=== PATIENT | male | born 1935 | race African-American/Black ===

== ENCOUNTER 2019-12-22 21:55 | Inpatient (IN) ==
[2019-12-22] MEDS ORDERED: ONDANSETRON 4 MG/2 ML VIAL IV STA (22:17)
[2019-12-22] MEDS ORDERED: hydrALAZINE 20 MG/1 ML VIAL IV STA (22:23)
[2019-12-22 22:57] LABS: Hematocrit 33.8 VOL% (42.0-52.0); Immature Granulocytes % 0.3 %; Immature Granulocytes Absolute 0.01 #; Lymphocytes # 0.5 10*3/uL (1.4-4.0); Lymphocytes % 14.5 % (21.2-54.2); Mean Corpuscular HGB Conc 32.5 GM/DL (32-36); Mean Corpuscular Volume 88.7 FL (87-102); Monocytes % 6.8 % (1.7-12.7); Neutrophils % 78.4 % (38.7-73.9); Platelet Count 134 T/CUMM (130-400); Red Blood Count 3.81 MC/CUMM (3.8-5.5); Red Cell Distribution Width 15.9 % (9.3-17.3); White Blood Count 3.4 T/CUMM (4-12)
[2019-12-22 23:08] LABS: PT Patient Result 10.8 SECS (9.8-11.9)
[2019-12-22 23:31] LABS: Alanine Aminotransferase 30 U/L (16-61); Albumin 2.8 G/DL (3.4-5.0); Alkaline Phosphatase 39 U/L (45-117); Aspartate Amino Transferase 57 U/L (0-37); Bilirubin,Total < 0.39 MG/DL (0.2-1.0); Blood Urea Nitrogen 34 MG/DL (7-18); CKMB % 0.6 %; Calcium 8.1 MG/DL (8.5-10.1); Estimated Glom Filtration Rate 23 ML/MIN; Free T4 (Free Thyroxine) 0.92 NG/DL (0.76-1.46); Osmolality,Calculated 277.8 MOS/KG (273-304)
[2019-12-22 23:33] LABS: Glucose 45 MG/DL (74-106); Troponin I 0.052 NG/ML (0.00-0.045)
[2019-12-22] MEDS ORDERED: DEXTROSE 50% 25 GM/50 ML SYRINGE IV ONE (23:35)
[2019-12-22] MEDS ORDERED: AZITHROMYCIN INJ 500 MG in SODIUM CHLORIDE 0.9% 250 ML IV STA (23:55)
[2019-12-22] MEDS ORDERED: ALBUTEROL/IPRATROPIUM 3 ML NEB RESP TX STA (23:55)
[2019-12-22] MEDS ORDERED: cefTRIAXone 1,000 MG in SODIUM CHLORIDE 0.9% 100 ML IV STA (23:55)
[2019-12-22] MEDS ORDERED: methylPREDNISolone SOD SUC 125 MG/2 ML VIAL IV STA (23:55)
[2019-12-23] MEDS ORDERED: hydrALAZINE 20 MG/1 ML VIAL IV STA (00:01)
[2019-12-23 00:27] LABS: Ferritin 760.7 ng/ml (26-388)
[2019-12-23] MEDS ORDERED: ONDANSETRON 4 MG/2 ML VIAL IV PRN (00:29)
[2019-12-23] MEDS ORDERED: DEXTROSE 50% 25 GM/50 ML VIAL IV PRN ×2 (00:29)
[2019-12-23] MEDS ORDERED: GLUCAGON 1 MG VIAL IM PRN ×2 (00:29)
[2019-12-23] MEDS ORDERED: ACETAMINOPHEN 325 MG TABLET PO PRN (00:29)
[2019-12-23] MEDS ORDERED: INFLUENZA VIRUS VACCINE 0.5 ML SYRINGE IM ONE (01:58)
[2019-12-23] MEDS ORDERED: PNEUMOCOCCAL VACCINE (13 VALENT) 0.5 ML SYRINGE IM ONE (01:58)
[2019-12-23] MEDS: SODIUM CHLORIDE 0.9% 1,000 ML IV SCH ×2 (02:13→14:46)
[2019-12-23] MEDS: hydrALAZINE 20 MG/1 ML VIAL IV PRN ×3 (02:29→16:10)
[2019-12-23 05:05] LABS: Hematocrit 39.7 VOL% (42.0-52.0); Hemoglobin 12.6 GM/DL (14.0-18.0); Immature Granulocytes % 0.2 %; Immature Granulocytes Absolute 0.01 #; Lymphocytes # 0.5 10*3/uL (1.4-4.0); Lymphocytes % 12.8 % (21.2-54.2); Mean Corpuscular HGB Conc 31.7 GM/DL (32-36); Mean Corpuscular Volume 88.8 FL (87-102); Monocytes % 2.4 % (1.7-12.7); Neutrophils % 84.6 % (38.7-73.9); Platelet Count 159 T/CUMM (130-400); Red Blood Count 4.47 MC/CUMM (3.8-5.5); Red Cell Distribution Width 15.9 % (9.3-17.3); White Blood Count 4.2 T/CUMM (4-12)
[2019-12-23 05:27] LABS: Platelet Estimate Adequate
[2019-12-23 05:33] LABS: Calcium 8.5 MG/DL (8.5-10.1); Osmolality,Calculated 278.2 MOS/KG (273-304)
[2019-12-23] MEDS: hydrALAZINE 25 MG TABLET PO SCH ×3 (08:15→22:11)
[2019-12-23] MEDS: INSULIN REGULAR 100 UNIT/ML SUBCUT SCH ×4 (08:40→22:12)
[2019-12-23] MEDS: AZITHROMYCIN 250 MG TABLET PO SCH (08:43)
[2019-12-23] MEDS ORDERED: amLODIPine 10 MG TABLET PO SCH (09:00)
[2019-12-23] MEDS ORDERED: PANTOPRAZOLE 40 MG TABLET PO SCH (09:00)
[2019-12-23 11:00] LABS: Amorphous Crystals,Urine Occasional /HPF (Few); Apearance,Urine CLEAR (Clear); Bacteria,Urine Occasional /HPF (Few); Bilirubin,Urine Negative (Negative); Blood, Urine Large mg/dL (Negative); Glucose,Urine (UA) 50 mg/dL (Negative); Ketones,Urine 5 mg/dL (Negative); Mucus,Urine Occasional /LPF (Occasional); Nitrite,Urine Negative (Negative); Protein,Urine >=500 MG/DL; RBC,Urine 5 /HPF (0-4); Urine Color Yellow (Yellow); Urine Specific Gravity 1.017 (1.001-1.035); Urine Urobilinogen < 2.0 EU/DL (0.2-1.0); WBC,Urine <1 /HPF (0-6)
[2019-12-23] MEDS: cefTRIAXone 2,000 MG in SYRINGE 1 EACH IV SCH (20:55)
[2019-12-23] MEDS ORDERED: AZITHROMYCIN INJ 500 MG in SODIUM CHLORIDE 0.9% 250 ML IV SCH (21:00)
[2019-12-24] MEDS ORDERED: DEXTROSE 10% 250 ML BAG IV PRN ×2 (07:30)
[2019-12-24] MEDS ORDERED: ALUM/MAG/SIMETH/LIDO VISC 1:1 30 ML BOTTLE PO ONE (08:07)
[2019-12-24] MEDS ORDERED: carvediloL 6.25 MG TABLET PO SCH (09:00)
[2019-12-24] MEDS: AZITHROMYCIN 250 MG TABLET PO SCH (09:05)
[2019-12-24] MEDS: atenoloL 50 MG TABLET PO SCH (09:05)
[2019-12-24] MEDS: PANTOPRAZOLE 40 MG TABLET PO SCH (09:05)
[2019-12-24] MEDS: HEPARIN 5,000 UNIT/1 ML VIAL SUBCUT SCH ×2 (09:06→21:05)
[2019-12-24] MEDS: INSULIN REGULAR 100 UNIT/ML SUBCUT SCH ×4 (09:22→21:06)
[2019-12-24] MEDS: GLIMEPIRIDE 4 MG TABLET PO SCH (11:41)
[2019-12-24] MEDS: SODIUM CHLORIDE 0.9% 1,000 ML IV SCH (11:43)
[2019-12-24] MEDS ORDERED: POLYETHYLENE GLYCOL POWDER 17 GM PACK PO ONE (12:03)
[2019-12-24] MEDS: hydrALAZINE 25 MG TABLET PO SCH ×2 (15:29→21:05)
[2019-12-24] MEDS ORDERED: FUROSEMIDE 40 MG TABLET PO SCH (16:00)
[2019-12-24 16:51] LABS: Calcium 7.7 MG/DL (8.5-10.1); Osmolality,Calculated 299.8 MOS/KG (273-304)
[2019-12-24 16:55] LABS: Basophils % 0.1 % (0.0-0.8); Hematocrit 37.6 VOL% (42.0-52.0); Hemoglobin 12.3 GM/DL (14.0-18.0); Immature Granulocytes % 0.9 %; Immature Granulocytes Absolute 0.07 #; Lymphocytes # 0.4 10*3/uL (1.4-4.0); Lymphocytes % 5.5 % (21.2-54.2); Mean Corpuscular HGB Conc 32.7 GM/DL (32-36); Mean Corpuscular Volume 86.6 FL (87-102); Monocytes % 3.4 % (1.7-12.7); Neutrophils % 90.1 % (38.7-73.9); Platelet Count 196 T/CUMM (130-400); Red Blood Count 4.34 MC/CUMM (3.8-5.5); Red Cell Distribution Width 16.2 % (9.3-17.3); White Blood Count 7.8 T/CUMM (4-12)
[2019-12-24] MEDS: cefTRIAXone 2,000 MG in SYRINGE 1 EACH IV SCH (21:06)
[2019-12-25 05:28] LABS: Basophils % 0.2 % (0.0-0.8); Hematocrit 34.2 VOL% (42.0-52.0); Hemoglobin 11.3 GM/DL (14.0-18.0); Immature Granulocytes % 0.7 %; Immature Granulocytes Absolute 0.04 #; Lymphocytes # 0.6 10*3/uL (1.4-4.0); Lymphocytes % 10.3 % (21.2-54.2); Mean Corpuscular Volume 86.1 FL (87-102); Mean Platelet Volume 12.1 FL (9.6-12.0); Monocytes % 4.4 % (1.7-12.7); Neutrophils % 84.4 % (38.7-73.9); Platelet Count 149 T/CUMM (130-400); Red Blood Count 3.97 MC/CUMM (3.8-5.5); Red Cell Distribution Width 16.4 % (9.3-17.3)
[2019-12-25 05:44] LABS: Calcium 7.9 MG/DL (8.5-10.1); Osmolality,Calculated 298.7 MOS/KG (273-304)
[2019-12-25] MEDS: PANTOPRAZOLE 40 MG TABLET PO SCH (09:50)
[2019-12-25] MEDS: ZINC SULFATE 220 MG CAPSULE PO SCH (09:50)
[2019-12-25] MEDS: HYDROXYCHLOROQUINE 200 MG TABLET PO SCH ×2 (09:51→22:26)
[2019-12-25] MEDS: atenoloL 50 MG TABLET PO SCH (09:51)
[2019-12-25] MEDS: HEPARIN 5,000 UNIT/1 ML VIAL SUBCUT SCH ×2 (09:51→22:27)
[2019-12-25] MEDS: AZITHROMYCIN 250 MG TABLET PO SCH (09:51)
[2019-12-25] MEDS: GLIMEPIRIDE 4 MG TABLET PO SCH (09:51)
[2019-12-25] MEDS: hydrALAZINE 25 MG TABLET PO SCH ×3 (09:51→22:29)
[2019-12-25] MEDS: INSULIN REGULAR 100 UNIT/ML SUBCUT SCH ×4 (10:00→22:55)
[2019-12-25] MEDS ORDERED: ETOMIDATE 20 MG/10 ML VIAL IV ONE ×2 (18:02→18:19)
[2019-12-25] MEDS ORDERED: SUCCINYLCHOLINE 200 MG/10 ML VIAL ONE (18:03)
[2019-12-25] MEDS ORDERED: SUCCINYLCHOLINE 200 MG/10 ML VIAL IV ONE (18:20)
[2019-12-25] MEDS ORDERED: LORazepam 2 MG/1 ML VIAL ONE (18:45)
[2019-12-25] MEDS ORDERED: VANCOMYCIN INJ 1,750 MG in SODIUM CHLORIDE 0.9% 500 ML IV PRN (19:30)
[2019-12-25] MEDS ORDERED: LORazepam 2 MG/1 ML VIAL IV ONE (19:41)
[2019-12-25] MEDS ORDERED: VANCOMYCIN INJ 1,750 MG in SODIUM CHLORIDE 0.9% 500 ML IV ONE (21:00)
[2019-12-25 21:04] LABS: ABG HCO3 18.1 MMOL/L (20-26); ABG Oxygen Saturation 98.3 % (95-100); ABG PCO2 34.9 MM HG (35-48); ABG PH 7.333 (7.35-7.45); ABG PO2 152.8 MM HG (80-95); ABG TCO2 19.2 MMOL/L (23-27); Allen Test Positive; Pt O2 Delivery Device Ventilator
[2019-12-25] MEDS: MEROPENEM 500 MG in SODIUM CHLORIDE 0.9% 100 ML IV SCH (22:23)
[2019-12-25] MEDS: SIMVASTATIN 80 MG TABLET PO SCH (22:25)
[2019-12-26 03:45] LABS: Apearance,Urine CLOUDY (Clear); Bacteria,Urine Moderate /HPF (Few); Bilirubin,Urine Negative (Negative); Blood, Urine Large mg/dL (Negative); Glucose,Urine (UA) 50 mg/dL (Negative); Granular Casts,Urine 3 /LPF (0-1); Hyaline Casts,Urine 1 /LPF (0-3); Ketones,Urine Negative (Negative); Mucus,Urine Occasional /LPF (Occasional); Nitrite,Urine Negative (Negative); Protein,Urine >=500 MG/DL; RBC,Urine 3 /HPF (0-4); Squamous Epithelial Cell,Urine Occasional /HPF (0-10); Urine Color Yellow (Yellow); Urine Specific Gravity 1.024 (1.001-1.035); Urine Urobilinogen < 2.0 EU/DL (0.2-1.0); WBC,Urine 2 /HPF (0-6)
[2019-12-26 03:51] LABS: Amorphous Crystals,Urine Moderate /HPF (Few)
[2019-12-26 04:13] LABS: ABG HCO3 18.8 MMOL/L (20-26); ABG Oxygen Saturation 98.1 % (95-100); ABG PH 7.318 (7.35-7.45); ABG TCO2 16.1 MMOL/L (23-27); Allen Test Positive; Pt O2 Delivery Device Ventilator
[2019-12-26 06:02] LABS: Hematocrit 30.5 VOL% (42.0-52.0); Immature Granulocytes % 0.5 %; Immature Granulocytes Absolute 0.02 #; Lymphocytes # 0.4 10*3/uL (1.4-4.0); Lymphocytes % 10.1 % (21.2-54.2); Mean Corpuscular HGB Conc 32.8 GM/DL (32-36); Mean Corpuscular Volume 86.6 FL (87-102); Mean Platelet Volume 14.1 FL (9.6-12.0); Monocytes % 2.2 % (1.7-12.7); Neutrophils % 87.2 % (38.7-73.9); Red Blood Count 3.52 MC/CUMM (3.8-5.5); Red Cell Distribution Width 16.7 % (9.3-17.3); White Blood Count 4.2 T/CUMM (4-12)
[2019-12-26 06:06] LABS: Platelet Count 110 T/CUMM (130-400)
[2019-12-26 06:31] LABS: Alanine Aminotransferase 29 U/L (16-61); Albumin 1.8 G/DL (3.4-5.0); Alkaline Phosphatase 36 U/L (45-117); Aspartate Amino Transferase 43 U/L (0-37); Bilirubin,Total < 0.39 MG/DL (0.2-1.0); Blood Urea Nitrogen 74 MG/DL (7-18); Calcium 7.6 MG/DL (8.5-10.1); Estimated Glom Filtration Rate 16 ML/MIN; Glucose 154 MG/DL (74-106); Osmolality,Calculated 301.5 MOS/KG (273-304); Total Protein 6.3 G/DL (6.4-8.3)
[2019-12-26 06:33] LABS: Hypochromasia 1+; Ovalocytes Slight; Platelet Estimate Decreased
[2019-12-26] MEDS: MEROPENEM 500 MG in SODIUM CHLORIDE 0.9% 100 ML IV SCH ×2 (08:10→20:22)
[2019-12-26] MEDS ORDERED: DEXTROSE 50% 25 GM/50 ML VIAL IV PRN (08:40)
[2019-12-26] MEDS ORDERED: GLUCAGON 1 MG VIAL IM PRN (08:40)
[2019-12-26] MEDS: OMEPRAZOLE ODT 20 MG TABLET PO SCH (09:03)
[2019-12-26] MEDS: GLIMEPIRIDE 4 MG TABLET PO SCH (09:03)
[2019-12-26] MEDS: INSULIN REGULAR 100 UNIT/ML SUBCUT SCH ×5 (09:03→23:30)
[2019-12-26] MEDS: HYDROXYCHLOROQUINE 200 MG TABLET PO SCH ×2 (09:03→21:18)
[2019-12-26] MEDS: HEPARIN 5,000 UNIT/1 ML VIAL SUBCUT SCH ×2 (09:04→21:19)
[2019-12-26] MEDS: hydrALAZINE 25 MG TABLET PO SCH ×3 (09:04→21:19)
[2019-12-26] MEDS: atenoloL 50 MG TABLET PO SCH (09:04)
[2019-12-26] MEDS: AZITHROMYCIN INJ 500 MG in SODIUM CHLORIDE 0.9% 250 ML IV SCH (09:10)
[2019-12-26] MEDS: SIMVASTATIN 80 MG TABLET PO SCH (21:18)
[2019-12-27 04:46] LABS: ABG Base Excess -8.4 MMOL/L (-2.5-2.5); ABG HCO3 17.7 MMOL/L (20-26); ABG Oxygen Saturation 98.2 % (95-100); ABG PCO2 37.9 MM HG (35-48); ABG PH 7.279 (7.35-7.45); ABG TCO2 16.1 MMOL/L (23-27)
[2019-12-27 04:48] LABS: Eosinophils % 0.8 % (0.00-10.9); Hematocrit 31.3 VOL% (42.0-52.0); Hemoglobin 10.3 GM/DL (14.0-18.0); Immature Granulocytes % 1.4 %; Immature Granulocytes Absolute 0.07 #; Lymphocytes # 0.4 10*3/uL (1.4-4.0); Lymphocytes % 7.7 % (21.2-54.2); Mean Corpuscular HGB Conc 32.9 GM/DL (32-36); Mean Corpuscular Volume 86.7 FL (87-102); Monocytes % 2.2 % (1.7-12.7); Neutrophils % 87.9 % (38.7-73.9); Platelet Count 116 T/CUMM (130-400); Red Blood Count 3.61 MC/CUMM (3.8-5.5); Red Cell Distribution Width 16.8 % (9.3-17.3); White Blood Count 4.9 T/CUMM (4-12)
[2019-12-27 05:02] LABS: PT Patient Result 10.3 SECS (9.8-11.9); Partial Thromboplastin Time 39.7 SECS (23.9-33.8)
[2019-12-27 05:12] LABS: Calcium 7.7 MG/DL (8.5-10.1); Osmolality,Calculated 301.5 MOS/KG (273-304)
[2019-12-27 05:21] LABS: Albumin 1.7 G/DL (3.4-5.0); Bilirubin,Direct 0.12 MG/DL (0.0-0.20); Bilirubin,Indirect 0.5 MG/DL (0.0-1.0); Bilirubin,Total 0.6 MG/DL (0.2-1.0); Ferritin 1113.4 ng/ml (26-388)
[2019-12-27 05:25] VITALS: BP 101/62
[2019-12-27 05:41] LABS: Lymphocytes 9 % (20-55); Segmented Neutrophils 89 % (50-85); Total Cells Counted 100
[2019-12-27 05:42] LABS: Platelet Estimate Adequate
[2019-12-27 05:43] LABS: Burr Cells 2+; Ovalocytes 1+
[2019-12-27] MEDS: INSULIN REGULAR 100 UNIT/ML SUBCUT SCH ×3 (06:19→17:26)
[2019-12-27] MEDS: MEROPENEM 500 MG in SODIUM CHLORIDE 0.9% 100 ML IV SCH ×2 (07:50→20:29)
[2019-12-27] MEDS: HEPARIN 5,000 UNIT/1 ML VIAL SUBCUT SCH ×2 (07:57→20:30)
[2019-12-27] MEDS: ZINC SULFATE 220 MG CAPSULE PO SCH (08:01)
[2019-12-27] MEDS: hydrALAZINE 25 MG TABLET PO SCH ×2 (08:01→14:11)
[2019-12-27] MEDS: HYDROXYCHLOROQUINE 200 MG TABLET PO SCH ×2 (08:01→20:29)
[2019-12-27] MEDS: atenoloL 50 MG TABLET PO SCH (08:01)
[2019-12-27] MEDS: OMEPRAZOLE ODT 20 MG TABLET PO SCH (08:01)
[2019-12-27] MEDS: AZITHROMYCIN INJ 500 MG in SODIUM CHLORIDE 0.9% 250 ML IV SCH (10:17)
[2019-12-27] MEDS: MIDAZOLAM 100 MG in SODIUM CHLORIDE 0.9% 80 ML IV PRN (11:05)
[2019-12-27] MEDS: SODIUM CHLORIDE 0.9% 1,000 ML IV SCH (13:41)
[2019-12-27] MEDS: SIMVASTATIN 80 MG TABLET PO SCH (20:29)
[2019-12-28] MEDS: INSULIN REGULAR 100 UNIT/ML SUBCUT SCH ×4 (00:10→19:23)
[2019-12-28] MEDS: MIDAZOLAM 100 MG in SODIUM CHLORIDE 0.9% 80 ML IV PRN (01:45)
[2019-12-28 04:12] LABS: ABG Base Excess -11.6 MMOL/L (-2.5-2.5); ABG HCO3 14.4 MMOL/L (20-26); ABG Oxygen Saturation 94.6 % (95-100); ABG PCO2 33.2 MM HG (35-48); ABG PH 7.256 (7.35-7.45); ABG PO2 82.8 MM HG (80-95); ABG TCO2 15.4 MMOL/L (23-27)
[2019-12-28 06:02] LABS: Eosinophils # 0.1 10*3/uL (0.0-0.87); Eosinophils % 1.5 % (0.00-10.9); Hematocrit 30.2 VOL% (42.0-52.0); Immature Granulocytes % 1.7 %; Immature Granulocytes Absolute 0.08 #; Lymphocytes # 0.5 10*3/uL (1.4-4.0); Lymphocytes % 10.9 % (21.2-54.2); Mean Corpuscular HGB Conc 33.1 GM/DL (32-36); Mean Corpuscular Volume 85.8 FL (87-102); Mean Platelet Volume 13.1 FL (9.6-12.0); Monocytes % 4.5 % (1.7-12.7); Neutrophils % 81.4 % (38.7-73.9); Platelet Count 152 T/CUMM (130-400); Red Blood Count 3.52 MC/CUMM (3.8-5.5); Red Cell Distribution Width 17.3 % (9.3-17.3); White Blood Count 4.7 T/CUMM (4-12)
[2019-12-28 06:20] LABS: Calcium 7.8 MG/DL (8.5-10.1); Osmolality,Calculated 304.7 MOS/KG (273-304)
[2019-12-28 06:21] LABS: Band Neutrophils 1 % (0-10); Eosinophils 1 % (0-10); Lymphocytes 6 % (20-55); Platelet Estimate Adequate; Segmented Neutrophils 88 % (50-85); Total Cells Counted 100
[2019-12-28 06:22] LABS: Burr Cells Slight; Ovalocytes Slight
[2019-12-28 07:05] LABS: PT Patient Result 10.3 SECS (9.8-11.9); Partial Thromboplastin Time 38.5 SECS (23.9-33.8)
[2019-12-28 07:33] LABS: Albumin 1.7 G/DL (3.4-5.0); Bilirubin,Direct 0.32 MG/DL (0.0-0.20); Bilirubin,Indirect 0.2 MG/DL (0.0-1.0); Bilirubin,Total 0.5 MG/DL (0.2-1.0); Ferritin 1943.1 ng/ml (26-388)
[2019-12-28] MEDS: MEROPENEM 500 MG in SODIUM CHLORIDE 0.9% 100 ML IV SCH ×2 (07:49→20:32)
[2019-12-28] MEDS: HEPARIN 5,000 UNIT/1 ML VIAL SUBCUT SCH ×2 (08:21→20:32)
[2019-12-28] MEDS: HYDROXYCHLOROQUINE 200 MG TABLET PO SCH ×2 (08:21→20:32)
[2019-12-28] MEDS: OMEPRAZOLE ODT 20 MG TABLET PO SCH (08:21)
[2019-12-28] MEDS: AZITHROMYCIN INJ 500 MG in SODIUM CHLORIDE 0.9% 250 ML IV SCH (08:50)
[2019-12-28 13:05] LABS: Hepatitis B Core IgM Quant < 0.05 Index; Hepatitis B Surface Ag Quant < 0.10 Index; Hepatitis B Surface Ag Result Negative (Negative); Hepatitis C Virus Ab Quant 0.09 Index; Hepatitis C Virus Ab Result Negative (Negative)
[2019-12-28] MEDS: SODIUM CHLORIDE 0.9% 1,000 ML IV SCH (13:55)
[2019-12-29] MEDS: INSULIN REGULAR 100 UNIT/ML SUBCUT SCH ×4 (00:20→18:04)
[2019-12-29] MEDS: MIDAZOLAM 100 MG in SODIUM CHLORIDE 0.9% 80 ML IV PRN (00:47)
[2019-12-29 04:16] LABS: ABG HCO3 18.1 MMOL/L (20-26); ABG Oxygen Saturation 92.5 % (95-100); ABG PCO2 55.6 MM HG (35-48); ABG PO2 78.6 MM HG (80-95); ABG TCO2 19.8 MMOL/L (23-27); Allen Test Positive; Pt O2 Delivery Device Ventilator
[2019-12-29 04:24] LABS: ABG PH 7.131 (7.35-7.45)
[2019-12-29 06:02] LABS: Basophils % 0.3 % (0.0-0.8); Eosinophils # 0.1 10*3/uL (0.0-0.87); Eosinophils % 1.4 % (0.00-10.9); Hematocrit 30.9 VOL% (42.0-52.0); Immature Granulocytes % 1.5 %; Lymphocytes # 0.8 10*3/uL (1.4-4.0); Lymphocytes % 11.3 % (21.2-54.2); Mean Corpuscular HGB Conc 32.4 GM/DL (32-36); Mean Corpuscular Volume 86.3 FL (87-102); Mean Platelet Volume 12.4 FL (9.6-12.0); Monocytes % 8.3 % (1.7-12.7); NRBC # 0.02 10*3/uL; Neutrophils % 77.2 % (38.7-73.9); Platelet Count 225 T/CUMM (130-400); Red Blood Count 3.58 MC/CUMM (3.8-5.5); Red Cell Distribution Width 17.6 % (9.3-17.3); White Blood Count 6.6 T/CUMM (4-12)
[2019-12-29] MEDS: SODIUM CHLORIDE 0.9% 1,000 ML IV SCH (06:02)
[2019-12-29 06:18] LABS: Calcium 7.9 MG/DL (8.5-10.1)
[2019-12-29 06:49] LABS: Prealbumin 5.6 MG/DL (20-40)
[2019-12-29] MEDS: HEPARIN 5,000 UNIT/1 ML VIAL SUBCUT SCH ×2 (08:41→22:04)
[2019-12-29] MEDS: AZITHROMYCIN INJ 500 MG in SODIUM CHLORIDE 0.9% 250 ML IV SCH (08:41)
[2019-12-29] MEDS: OMEPRAZOLE ODT 20 MG TABLET PO SCH (08:42)
[2019-12-29] MEDS: HYDROXYCHLOROQUINE 200 MG TABLET PO SCH ×2 (08:42→22:04)
[2019-12-29] MEDS: ZINC SULFATE 220 MG CAPSULE PO SCH (08:42)
[2019-12-29] MEDS: NOREPINEPHRINE 8 MG in SODIUM CHLORIDE 0.9% 242 ML IV PRN ×2 (12:21→22:48)
[2019-12-29] MEDS ORDERED: ATROPINE 1 MG/10 ML SYRINGE ONE (13:04)
[2019-12-29] MEDS ORDERED: CALCIUM GLUCONATE 1,000 MG/10 ML VIAL IV ONE (13:05)
[2019-12-29] MEDS ORDERED: SODIUM BICARBONATE 50 MEQ/50 ML VIAL IV ONE (13:05)
[2019-12-29] MEDS ORDERED: ALBUMIN 25% 25 GM in PREMIX 1 EACH IV ONE (13:08)
[2019-12-29] MEDS ORDERED: ALBUMIN 25% 25 GM/100 ML VIAL IV ONE (13:09)
[2019-12-29] MEDS: SODIUM BICARB INJ 150 MEQ in DEXTROSE 5% 850 ML IV SCH (14:07)
[2019-12-29 14:09] LABS: ABG Base Excess -11.4 MMOL/L (-2.5-2.5); ABG HCO3 15.5 MMOL/L (20-26); ABG Oxygen Saturation 97.2 % (95-100); ABG TCO2 21.8 MMOL/L (23-27)
[2019-12-29 14:11] LABS: ABG PCO2 89.6 MM HG (35-48); ABG PH 7.008 (7.35-7.45)
[2019-12-29] MEDS: MEROPENEM 500 MG in SODIUM CHLORIDE 0.9% 100 ML IV SCH (22:04)
[2019-12-29] MEDS ORDERED: NOREPINEPHRINE 4 MG/4 ML VIAL IV ONE (22:39)
[2019-12-30] MEDS: INSULIN REGULAR 100 UNIT/ML SUBCUT SCH ×5 (00:31→23:38)
[2019-12-30] MEDS: SODIUM BICARB INJ 150 MEQ in DEXTROSE 5% 850 ML IV SCH ×2 (00:35→12:30)
[2019-12-30 04:20] LABS: ABG Base Excess -7.2 MMOL/L (-2.5-2.5); ABG HCO3 18.4 MMOL/L (20-26); ABG Oxygen Saturation 88.6 % (95-100); ABG PO2 65.7 MM HG (80-95); ABG TCO2 24.6 MMOL/L (23-27); Allen Test Positive; Pt O2 Delivery Device Ventilator
[2019-12-30 04:22] LABS: ABG PCO2 90.7 MM HG (35-48); ABG PH 7.047 (7.35-7.45)
[2019-12-30] MEDS ORDERED: SODIUM BICARBONATE 50 MEQ/50 ML VIAL IV ONE (04:50)
[2019-12-30 06:09] LABS: Basophils % 0.2 % (0.0-0.8); Eosinophils % 0.2 % (0.00-10.9); Hemoglobin 8.8 GM/DL (14.0-18.0); Immature Granulocytes % 1.4 %; Immature Granulocytes Absolute 0.08 #; Lymphocytes # 0.4 10*3/uL (1.4-4.0); Lymphocytes % 6.9 % (21.2-54.2); Mean Corpuscular HGB Conc 31.4 GM/DL (32-36); Mean Corpuscular Volume 89.2 FL (87-102); Mean Platelet Volume 11.9 FL (9.6-12.0); Monocytes % 9.6 % (1.7-12.7); NRBC # 0.02 10*3/uL; Neutrophils % 81.7 % (38.7-73.9); Platelet Count 194 T/CUMM (130-400); Red Blood Count 3.14 MC/CUMM (3.8-5.5); Red Cell Distribution Width 17.8 % (9.3-17.3); White Blood Count 5.5 T/CUMM (4-12)
[2019-12-30 06:31] LABS: Albumin 1.8 G/DL (3.4-5.0); Bilirubin,Total 0.5 MG/DL (0.2-1.0); Calcium 7.7 MG/DL (8.5-10.1); Total Protein 7.4 G/DL (6.4-8.3)
[2019-12-30 06:44] LABS: Hypochromasia 1+
[2019-12-30 06:45] LABS: Microcytosis 1+
[2019-12-30 06:46] LABS: Ovalocytes Slight; Platelet Estimate Normal
[2019-12-30] MEDS ORDERED: CALCIUM GLUCONATE 1,000 MG in SODIUM CHLORIDE 0.9% 100 ML IV ONE (07:30)
[2019-12-30] MEDS: NOREPINEPHRINE 8 MG in SODIUM CHLORIDE 0.9% 242 ML IV PRN ×2 (07:45→23:24)
[2019-12-30] MEDS: AZITHROMYCIN INJ 500 MG in SODIUM CHLORIDE 0.9% 250 ML IV SCH (08:46)
[2019-12-30] MEDS: HEPARIN 5,000 UNIT/1 ML VIAL SUBCUT SCH ×2 (08:49→19:56)
[2019-12-30] MEDS: PANTOPRAZOLE 40 MG VIAL IV SCH (08:49)
[2019-12-30 11:00] LABS: ABG Base Excess -2.7 MMOL/L (-2.5-2.5); ABG HCO3 22.2 MMOL/L (20-26); ABG Oxygen Saturation 98.7 % (95-100); ABG PCO2 57.4 MM HG (35-48); ABG PH 7.251 (7.35-7.45); ABG TCO2 23.4 MMOL/L (23-27)
[2019-12-30] MEDS: fentaNYL INJ 1,250 MCG in SODIUM CHLORIDE 0.9% 225 ML IV PRN ×2 (13:45→20:57)
[2019-12-30] MEDS: MEROPENEM 500 MG in SODIUM CHLORIDE 0.9% 100 ML IV SCH (19:55)
[2019-12-30] MEDS ORDERED: LORazepam 2 MG/1 ML VIAL ONE (22:50)
[2019-12-31] MEDS: SODIUM BICARB INJ 150 MEQ in DEXTROSE 5% 850 ML IV SCH (01:00)
[2019-12-31] MEDS: NOREPINEPHRINE 8 MG in SODIUM CHLORIDE 0.9% 242 ML IV PRN ×2 (03:23→06:50)
[2019-12-31] MEDS: fentaNYL INJ 1,250 MCG in SODIUM CHLORIDE 0.9% 225 ML IV PRN (04:08)
[2019-12-31 05:27] LABS: Basophils % 0.2 % (0.0-0.8); Eosinophils # 0.1 10*3/uL (0.0-0.87); Eosinophils % 0.6 % (0.00-10.9); Hematocrit 26.9 VOL% (42.0-52.0); Hemoglobin 7.8 GM/DL (14.0-18.0); Immature Granulocytes Absolute 0.33 #; Lymphocytes # 1.3 10*3/uL (1.4-4.0); Lymphocytes % 16.3 % (21.2-54.2); Mean Corpuscular Volume 94.7 FL (87-102); Neutrophils % 68.9 % (38.7-73.9); Platelet Count 203 T/CUMM (130-400); Red Blood Count 2.84 MC/CUMM (3.8-5.5); Red Cell Distribution Width 18.3 % (9.3-17.3); White Blood Count 8.2 T/CUMM (4-12)
[2019-12-31] MEDS: INSULIN REGULAR 100 UNIT/ML SUBCUT SCH (05:39)
[2019-12-31 05:52] LABS: Lymphocytes 23 % (20-55); Metamyelocytes 1 %; Nucleated Red Blood Cells 2 (0-5); Segmented Neutrophils 60 % (50-85); Total Cells Counted 100
[2019-12-31 05:53] LABS: Atypical Lymphocytes Few; Hypochromasia 1+; Microcytosis 1+; Platelet Estimate Normal; Target Cells Slight
[2019-12-31 06:07] LABS: Calcium 7.7 MG/DL (8.5-10.1); Osmolality,Calculated 301.7 MOS/KG (273-304); Prealbumin 6.1 MG/DL (20-40)
[2019-12-31] MEDS: LORazepam 2 MG/1 ML VIAL IV PRN ×2 (06:30→07:30)
[2019-12-31] MEDS ORDERED: SODIUM BICARBONATE 50 MEQ/50 ML VIAL IV ONE (07:03)
[2019-12-31] MEDS: MIDAZOLAM 100 MG in SODIUM CHLORIDE 0.9% 80 ML IV PRN (07:08)
[2019-12-31] MEDS ORDERED: CALCIUM GLUCONATE 1,000 MG in SODIUM CHLORIDE 0.9% 100 ML IV ONE (07:30)
[2019-12-31] MEDS: PANTOPRAZOLE 40 MG VIAL IV SCH (07:40)
[2019-12-31] MEDS: HEPARIN 5,000 UNIT/1 ML VIAL SUBCUT SCH (07:40)
[2019-12-31] MEDS ORDERED: MULTIVITAMIN LIQUID (CENTRUM) 60 ML BOTTLE PO SCH (09:00)
== END 2019-12-31 07:42 | disposition expired | DRG 207 ==
LOC: N.ED 21:55 → SUATTDRO 12-23 00:29 → SUPCPDRO 12-23 00:29 → N.EDINP 12-23 00:29 → N.CC 12-23 01:28 → N.2W 12-23 16:05 → N.CC 12-25 18:51
PROVIDERS: ADMIT Internal Medicine Cardiovascular Disease; ATTEND Internal Medicine